=== PATIENT | female | born 1935 | race Two or more races ===

== ENCOUNTER 2021-03-08 23:48 | Emergency (ER) | payer OTHER ==
[~2021-03-08] VITALS: Ht 165.1 cm; Wt 88.0 kg
[2021-03-09 02:00] VITALS: BP 148/64
[2021-03-09] MEDS ORDERED: HYDROcodone-ACET 5/325MG TAB PO ONE (02:30)
== END 2021-03-09 03:01 | disposition home or self-care (01) ==
LOC: EDBD 23:48 → ER 23:48
DX: S43.402A Unspecified sprain of left shoulder joint, initial encounter (principal); S33.9XXA Sprain of unspecified parts of lumbar spine and pelvis, initial encounter; I10 Essential (primary) hypertension; E78.5 Hyperlipidemia, unspecified; Z86.73 Personal history of transient ischemic attack (TIA), and cerebral infarction without residual deficits; Z88.0 Allergy status to penicillin; W22.8XXA Striking against or struck by other objects, initial encounter; Y93.89 Activity, other specified; Y92.89 Other specified places as the place of occurrence of the external cause; Y99.8 Other external cause status
CPT/HCPCS: 72170; 73030; 73060; 73090